=== PATIENT | male | born 1990 | race Caucasian/White ===

== ENCOUNTER 2018-12-16 16:23 | Emergency (ER) | payer OTHER ==
[2018-12-16] MEDS ORDERED: FLUORESCEIN SODIUM 1 MG/WRAP ONE ×2 (16:52→17:53)
[2018-12-16] MEDS ORDERED: TETRACAINE HCL 0.5% 4ML OPTH ONE (16:53)
[2018-12-16] MEDS ORDERED: NA CHLORIDE 0.9% 1,000 ML ONE (18:22)
--- NOTE | 2018-12-16 20:18 | EDPHYS ---
Physician Documentation [facility] Name: Kevin Petit Age: 28 yrs Sex: Male : 1990 Arrival Date: 12/16/2018 Time: 16:24 Bed 20 Private MD: ED Physician Armando Reynolds HPI: 12/16 18:53 This 28 yrs old Male presents to ER via EMS with complaints of Chemical kdr Exposure. 18:53 The patient had splash/exposure to the upper body and face with a 50% sodium hydroxide kdr solution. He was immediately decontaminated at the work site for more than 30 minutes. Then brought to the ED for further evaluation and treatment. He had no other c/o in the ED. Onset: The symptoms/episode began/occurred acutely, suddenly, just prior to arrival. Severity of symptoms: At their worst the symptoms were mild in the emergency department the symptoms are unchanged. The patient has not experienced similar symptoms in the past. The patient has not recently seen a physician. Historical: - Allergies: 16:26 Phenergan; bp - Home Meds: 16:26 None [Active]; bp - PMHx: 16:26 None; bp - Immunization history:: Adult Immunizations up to date. - Social history:: Smoking status: Patient/guardian denies using tobacco. - Ebola Screening: : No symptoms or risks identified at this time. ROS: 18:53 Constitutional: Negative for fever, chills, and weight loss, ENT: Negative for injury, kdr pain, and discharge, Neck: Negative for injury, pain, and swelling, Cardiovascular: Negative for chest pain, palpitations, and edema, Respiratory: Negative for shortness of breath, cough, wheezing, and pleuritic chest pain, Abdomen/GI: Negative for abdominal pain, nausea, vomiting, diarrhea, and constipation, Back: Negative for injury and pain, : Negative for injury, bleeding, discharge, and swelling, MS/Extremity: Negative for injury and deformity, Skin: Negative for injury, rash, and discoloration, Neuro: Negative for headache, weakness, numbness, tingling, and seizure activity. Psych: Negative for depression, anxiety, suicide ideation, homicidal ideation, and hallucinations, Allergy/Immunology: Negative for hives, rash, and allergies, Endocrine: Negative for neck swelling, polydipsia, polyuria, polyphagia, and marked weight changes, Hematologic/Lymphatic: Negative for swollen nodes, abnormal bleeding, and unusual bruising. 18:53 Eyes: Positive for blurry vision, redness. Exam: 18:53 Constitutional: This is a well developed, well nourished patient who is awake, alert, kdr and in no acute distress. 18:53 Head/face: Noted is erythema, that is mild, of the forehead, right eye, right cheek, right ear, left cheek and right adventist. 18:53 Eyes: Periorbital structures: appear normal, Pupils: equal, round, and reactive to light and accomodation, Extraocular movements: intact throughout, Conjunctiva: injected, in the right eye, Corneas: abrasion, that is large, on the right, a fluorescein strip employed to appreciate the findings, Sclera: Significant uptake to the lower half of the eye. Vital Signs: 16:28 BP 140 / 88; Pulse 88; Resp 13; Temp 98.6; Pulse Ox 95% ; Weight 97.52 kg; Height 5 ft. bp 10 in. (177.80 cm); 17:30 BP 124 / 70; Pulse 91; Resp 15; Pulse Ox 100% ; bp 18:26 BP 137 / 79; Pulse 73; Resp 15; Pulse Ox 98% ; bp 19:30 BP 135 / 76; Pulse 71; Resp 17; Pulse Ox 98% ; rr5 20:30 BP 116 / 69; Pulse 73; Resp 17; Temp 98.5; Pulse Ox 100% ; rr5 21:15 BP 116 / 79; Pulse 80; Resp 16; Pulse Ox 98% on R/A; rr5 22:00 BP 125 / 70; Pulse 79; Resp 18; Pulse Ox 99% ; rr5 16:28 Body Mass Index 30.85 (97.52 kg, 177.80 cm) bp MDM: 20:17 Patient medically screened. ps1 20:17 Data reviewed: vital signs, nurses notes. Counseling: I had a detailed discussion with ps1 the patient and/or guardian regarding: the historical points, exam findings, and any diagnostic results supporting the discharge/admit diagnosis, the need for outpatient follow up, an opthalmologist, to return to the emergency department if symptoms worsen or persist or if there are any questions or concerns that arise at home. ED course: Dr. Granda evaluated patient see her notes for details. Ok for discharge and rx steroids and will see patient in office tomorrow. pH normalized. . Administered Medications: 19:26 Drug: Tylenol 650 mg Route: PO; rr5 20:30 Follow up: Response: No adverse reaction rr5 Disposition: 12/16/18 20:17 Discharged to Home. Impression: Chemical Exposure to right eye.. - Condition is Stable. - Discharge Instructions: Chemical Conjunctivitis, Adult. - Prescriptions for Polytrim 10,000 unit- 1 mg/mL Ophthalmic drops - instill 1 drop by OPHTHALMIC route every 6 hours; 1 bottle. prednisolone acetate 1 % Ophthalmic drops,suspension - instill 1 drop by OPHTHALMIC route 4 times per day; 1 bottle. - Medication Reconciliation Form, Thank You Letter, Antibiotic Education, Prescription Opioid Use form. - Follow up: Tejal Pride MD; When: Tomorrow; Reason: Further diagnostic work-up, Recheck today's complaints, Continuance of care, Re-evaluation by your physician. Follow up: Emergency Department; When: As needed; Reason: Worsening of condition. - Problem is new. - Symptoms have improved. Signatures: Armando Reynolds MD MD kdr Rogelio Hutchinson RN RN bp Jorge Amor MD MD ps1 Jaiden Foy RN RN rr5 Corrections: (The following items were deleted from the chart) 22:19 20:17 12/16/2018 20:17 Discharged to Home. Impression: Chemical Exposure to right eye.. rr5 Condition is Stable. Forms are Medication Reconciliation Form, Thank You Letter, Antibiotic Education, Prescription Opioid Use. Follow up: Tejal Pride; When: Tomorrow; Reason: Further diagnostic work-up, Recheck today's complaints, Continuance of care, Re-evaluation by your physician. Follow up: Emergency Department; When: As needed; Reason: Worsening of condition. Problem is new. Symptoms have improved. ps1
--- NOTE | 2018-12-16 20:18 | ER ---
Nurse's Notes [facility] Name: Kevin Petit Age: 28 yrs Sex: Male : 1990 Arrival Date: 12/16/2018 Time: 16:24 Bed 20 Private MD: Diagnosis: Chemical Exposure to right eye. Presentation: 12/16 16:24 Presenting complaint: EMS states: EXPOSURE TO 50% NaOH INCLUDING EYES. Transition of bp care: patient was not received from another setting of care. Onset of symptoms was December 16, 2018 at 14:50. Risk Assessment: Do you want to hurt yourself or someone else? Patient reports no desire to harm self or others. Initial Sepsis Screen: Does the patient meet any 2 criteria? No. Patient's initial sepsis screen is negative. Does the patient have a suspected source of infection? No. Patient's initial sepsis screen is negative. Care prior to arrival: BILATERAL LUÍS LENS. 16:24 Method Of Arrival: EMS: [facility] bp 16:24 Acuity: INESSA 3 bp Triage Assessment: 16:26 General: Appears in no apparent distress. comfortable, Behavior is calm, cooperative, bp appropriate for age. Pain: Denies pain. EENT: Eyes IRRITATED. EENT: Reports INTACT VISION. Neuro: No deficits noted. Cardiovascular: No deficits noted. Respiratory: Airway is patent. GI: No signs and/or symptoms were reported involving the gastrointestinal system. : No signs and/or symptoms were reported regarding the genitourinary system. Derm: No deficits noted. Musculoskeletal: No deficits noted. Historical: - Allergies: 16:26 Phenergan; bp - Home Meds: 16:26 None [Active]; bp - PMHx: 16:26 None; bp - Immunization history:: Adult Immunizations up to date. - Social history:: Smoking status: Patient/guardian denies using tobacco. - Ebola Screening: : No symptoms or risks identified at this time. Screenin:29 Abuse screen: Denies threats or abuse. Denies injuries from another. Nutritional bp screening: No deficits noted. Tuberculosis screening: No symptoms or risk factors identified. Fall Risk None identified. Assessment: 16:28 General: SEE TRIAGE NOTE. bp 17:30 Reassessment: BILATERAL EYE IRRIGATION CONTINUING. bp 18:25 Reassessment: OPTHO C/S ARRIVAL PENDING FOR R EYE EVAL. bp 19:03 Reassessment: OPTHO C/S AT B/S. bp 19:20 General: Appears in no apparent distress. uncomfortable, Behavior is calm, cooperative, rr5 appropriate for age. 19:20 Pain: Complains of pain in right eye Pain does not radiate. Pain Quality of pain is rr5 described as aching, Pain began suddenly, Is intermittent. Neuro: Level of Consciousness is awake, alert, obeys commands, Oriented to person, place, time, situation, Appropriate for age. Cardiovascular: Capillary refill < 3 seconds Patient's skin is warm and dry. Respiratory: Airway is patent Respiratory effort is even, unlabored, Respiratory pattern is regular, symmetrical. GI: No signs and/or symptoms were reported involving the gastrointestinal system. : No signs and/or symptoms were reported regarding the genitourinary system. EENT: Eyes teary eyes, redness and complaining of irritated right eye.. Derm: Skin is pink, warm \T\ dry. Skin temperature is warm. Musculoskeletal: Circulation, motion, and sensation intact. Capillary refill < 3 seconds. 20:40 Reassessment: Patient appears in no apparent distress at this time. Patient and/or rr5 family updated on plan of care and expected duration. Pain level reassessed. Patient is alert, oriented x 3, equal unlabored respirations, skin warm/dry/pink. awaiting for the bag of NS fluid (for eye irrigation) to be consume before discharge. 21:30 Reassessment: Patient appears in no apparent distress at this time. Patient and/or rr5 family updated on plan of care and expected duration. Pain level reassessed. 22:15 Reassessment: Patient appears in no apparent distress at this time. Patient is alert, rr5 oriented x 3, equal unlabored respirations, skin warm/dry/pink. Bag of NS consumed. luís lens removed. discharge instruction given and explained without complaints made. Vital Signs: 16:28 BP 140 / 88; Pulse 88; Resp 13; Temp 98.6; Pulse Ox 95% ; Weight 97.52 kg; Height 5 ft. bp 10 in. (177.80 cm); 17:30 BP 124 / 70; Pulse 91; Resp 15; Pulse Ox 100% ; bp 18:26 BP 137 / 79; Pulse 73; Resp 15; Pulse Ox 98% ; bp 19:30 BP 135 / 76; Pulse 71; Resp 17; Pulse Ox 98% ; rr5 20:30 BP 116 / 69; Pulse 73; Resp 17; Temp 98.5; Pulse Ox 100% ; rr5 21:15 BP 116 / 79; Pulse 80; Resp 16; Pulse Ox 98% on R/A; rr5 22:00 BP 125 / 70; Pulse 79; Resp 18; Pulse Ox 99% ; rr5 16:28 Body Mass Index 30.85 (97.52 kg, 177.80 cm) bp ED Course: 16:24 Patient arrived in ED. bp 16:26 Triage completed. bp 16:27 Armando Reynolds MD is Attending Physician. kdr 16:28 Arm band placed on. bp 16:29 Patient has correct armband on for positive identification. Placed in gown. Bed in low bp position. Call light in reach. Side rails up X2. 18:24 Rogelio Hutchinson, RN is Primary Nurse. bp 20:16 Tejal Pride MD is Referral Physician. ps1 22:22 No provider procedures requiring assistance completed. Patient did not have IV access rr5 during this emergency room visit. Administered Medications: 19:26 Drug: Tylenol 650 mg Route: PO; rr5 20:30 Follow up: Response: No adverse reaction rr5 Outcome: 20:17 Discharge ordered by MD. ps1 22:15 Discharged to home ambulatory. rr5 22:15 Condition: stable 22:15 Discharge instructions given to patient, family, Instructed on discharge instructions, follow up and referral plans. medication usage, Demonstrated understanding of instructions, follow-up care, medications, Prescriptions given X 2. 22:19 Patient left the ED. rr5 Signatures: Armando Reynolds MD MD kdr Rogelio Hutchinson, RN RN bp Jorge Amor MD MD ps1 Jaiden Foy RN RN rr5
--- NOTE | 2018-12-17 01:32 | CON ---
Requesting Physician: Armando Reynolds MD History Of Present Illness: Mr. Petit is a 28-year-old white male who was working today and splashed 50% sodium hydroxide in the liquid form in his right eye at 2:50 p.m. He was wearing safety glasses. He went straight to the shower and performed eyewash for an hour and EMS also used irrigation in transit. He has had irrigation of the eye ever in the ER since arriving. I arrived in the ER at about 6:50 p.m. and irrigation was ongoing. Past Medical History: Negative. Past Surgical History: Negative. Allergies: HE HAS NO KNOWN DRUG ALLERGIES. Social History: He is and does not smoke tobacco. Medications: He is on no medications. Family History: Negative. Review of Systems: Ears, Nose, Throat: Negative. Cardiac: Negative. Lungs: Negative. Musculoskeletal: Negative. GI: Negative. : Negative. Endocrine: Negative. Hematologic: Negative. Immunologic: Negative. Psychologic: Negative. Skin: He has mild burn on the right side of his face in the temporal area. Ocular Examination: He is alert and oriented x3. His near vision without correction is 20/25 in the right eye and 20/25 in the left eye. He is orthophoric. He has full versions, both eyes. His pupils are equal, round, and reactive to light. There is no afferent pupillary defect. His confrontation rowe are full, both eyes. His lids; there is mild erythema at the temporal aspect of the right side of his face and left lids are normal. His right lid was everted. There was no foreign body underneath the lid. Conjunctivae; 1 to 2+ injection with no blanching on the right eye, within normal limits on the left. Cornea diffuse fluorescein uptake, the right eye within normal limits left eye. His anterior chamber is formed OU. His lens is clear in both eyes. He is dilated with 2.5% phenylephrine and 1% tropicamide. On dilated funduscopic examination, his macula, vasculature, optic nerve, and periphery are all within normal limits in both eyes. Impression: My impression is that the patient has a caustic injury of right eye. There is a diffuse corneal abrasion with no blanching of the conjunctiva. Plan: The plan is to have him use preservative-free tears every hour while awake, Polytrim 4 times a day, and Pred Forte 4 times a day in the right eye. He is to follow up with Dr. Pride in the morning. LIAN/AMA Voice ID: [id number] Report ID: [id number]
== END 2018-12-16 22:19 | disposition home or self-care (01) ==
LOC: ER 16:23
DX: H53.8 Other visual disturbances (principal); Z77.098 Contact with and (suspected) exposure to other hazardous, chiefly nonmedicinal, chemicals; Z88.8 Allergy status to other drugs, medicaments and biological substances
CPT/HCPCS: 99283; J7030